=== PATIENT | female | born 1960 | race African-American/Black ===

== ENCOUNTER → 2019-11-19 | Outpatient (CLI) | payer OTHER ==
--- NOTE | 2019-11-19 13:50 | RAD ---
LUMBAR SPINE WO CONTRAST Date: 11/19/2019 3:30 PM Indication: Low back pain and lower extremity weakness Comparison: None. Technique: Multi-planar multi-weighted magnetic resonance imaging of the lumbar spine was performed without intravenous contrast using the standard lumbar spine protocol. FINDINGS: The lumbar spine is normally aligned. No acute fracture. Mild multilevel degenerative disc desiccation and disc height loss. Mild fatty degenerative endplate changes at L5-S1. The conus terminates at a normal level. No abnormal signal is seen within the visualized distal spinal cord. No clumping of intrathecal nerve roots. No soft tissue abnormality in the visualized abdomen or pelvis. T12-L1: No disc bulge. No facet arthropathy. No significant spinal stenosis or neural foraminal narrowing. L1-L2: No disc bulge. No facet arthropathy. No significant spinal stenosis or neural foraminal narrowing. L2-L3: No disc bulge. No facet arthropathy. No significant spinal stenosis or neural foraminal narrowing. L3-L4: Disc bulge. No facet arthropathy. No significant spinal stenosis. Mild left neural foraminal narrowing. L4-L5: Disc bulge. No facet arthropathy. No significant spinal stenosis. Mild bilateral neural foraminal narrowing. L5-S1: Disc bulge. Mild facet arthropathy. No significant spinal stenosis or neural foraminal narrowing. IMPRESSION: Mild lumbar spondylosis, detailed level by level above. Electronically signed by: Michael Archer MD (11/19/2019 1:47 PM) [id number]
== END | disposition home or self-care (01) ==
LOC: MRI 12:17
PROVIDERS: ATTEND Orthopaedic Surgery
DX: M47.816 Spondylosis without myelopathy or radiculopathy, lumbar region (principal); M53.87 Other specified dorsopathies, lumbosacral region
CPT/HCPCS: 72148

== ENCOUNTER → 2020-05-04 | Outpatient (CLI) | payer OTHER ==
[~2020-05-04] MED LIST: ACET-1871 PO; HYDR-2761 PO; IOHEXOL 180 MG/ML 10 ML VIAL. ONE; MULT1CAP15 PO; TRIA1CAP3 PO; methylPREDNISolone ACETATE 40 MG/ML VIAL. ONE; methylPREDNISolone ACETATE 80 MG/ML VIAL. ONE
--- NOTE | 2020-05-04 12:59 | PDOC1 ---
INITIAL PAIN CONSULT DATE OF SERVICE: DOS: DATE: 05/04/20 TIME: 12:52 CHIEF COMPLAINT: Chief Complaint: Low back and bilateral lower extremity pain HISTORY OF PRESENT ILLNESS: 59-year-old female presents history of pain low back for about 2 years now worse over the past 6 months pain in the low back bilateral lower extremities worse on the right than the left rating the posterior gluteus posterior thigh posterior lateral thigh lateral anterior thigh anterior medial thigh again worse on the right side than the left into the medial upper leg on the right side. 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 Patient cries pain is constant sharp stabbing in the low back radiating shooting into the lower extremities again worse on the right than the left. Patient has had physical therapy in the past nothing recently but is doing some stretching strength exercises and stays very active at work. Also had epidural injections in the lumbar spine many years ago which were helpful as well. Patient is been taking hydrocodone as well as ibuprofen which both does decrease the pain to a moderate extent. Patient rates her disability rating 0-10 10 being the worst is a 5 family responsibilities recreation social activity 0 self-care activities. Patient reports no loss of m otor function but significant fatigability of the lower extremities specially on the right when she is on her feet walking standing better with sitting or laying down but is waking her from sleep occasionally not every night patient reports is not effective bowel bladder control does affect her ability to walk and with working and bending especially not use any assistive devices to ambulate however. Patient did have a MRI scan lumbar spine showing disc bulges L3-4 L4-5 and L5-S1 with only mild left neuroforaminal narrowing at L3-4 and mild bilateral neural foramen at L4-5. Patient reports no loss of motor function but significant fatigability especially the right leg with activity especially standing and walking and bending. PAST MEDICAL HISTORY: PMH: Hypertension arthritis obesity PREVIOUS SURGERIES: Past Surgical Hx: Hysterectomy 1999, tubal ligation 1986, breast lumpectomy 2014 CURRENT MEDICATIONS: Current Meds: Active Scripts Medications Dose Route/Sig Max Daily Dose Days Date Category Hydrocodone-Apap 5-325 (Hydrocodone Bit/Acetaminophen) 1 Tab Tablet Unknown Dose PO PRN Q6HRS PRN 05/04/20 Reported Triamterene-Hctz 37.5-25 Mg Cp (Triamterene/Hydrochlorothiazid) 1 Each Capsule 1 Cap PO DAILY 05/04/20 Reported Acetaminophen Ext.release (Acetaminophen) 650 Mg Tablet.er 650 Mg PO PRN Q8HRS PRN 05/04/20 Reported Multivitamins (Multivitamin) 1 Each Capsule 1 Cap PO DAILY 30 05/04/20 Reported FAMILY HISTORY: Family Hx: Cancer, hypertension, hypercholesterolemia, diabetes SOCIAL HISTORY: Social Hx: Patient does not drink alcohol does not smoke does not use any illegal illicit recreational drugs is single lives locally in [facility] and 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 Extraocular movements are intact and symmetrical. Oral cavity: Mucous membranes moist and pink. Dentition is intact. NECK: Shows anterior throat supple without palpable lymphadenopathy noted. Swallow reflex symmetrical. CHEST: Shows normal on inspection. Breath sounds are clear bilaterally, no rales rhonchi wheezes auscultated. HEART: Shows S1, S2 clear. No murmurs auscultated. ABDOMEN: Soft, nontender, nondistended, obese. No palpable organomegaly is noted. No rebound or guarding demonstrated. BACK: Shows spine grossly in the midline. Normal-appearing cervical lordotic c urvature. There is slightly increased thoracic kyphosis, some minor flattening of the lumbar lordotic curvature. Lumbar paraspinous muscles show symmetrical on inspection, on palpation shows some moderate tenderness diffusely throughout the upper, middle and lower distribution of the paraspinous muscles bilaterally and also into the lower thoracic paraspinous musculature, firm and tender, but without specific trigger points, without radiation of pain. The patient has good rotational motion of the lumbar spine, both laterally as well as extension and flexion without significant difficulty. No tenderness over the spinous processes, sacrum or sacroiliac regions. EXTREMITIES: Lower extremities show deep tendon reflexes 2+ in the patellar and tendo calcaneus tendons. Motor exam is 4 on a scale of 5 with right dorsiflexion, extension, quadriceps and hamstring flexion and 4/5 on the left. Peripheral pulses are 1+ posterior tibial. No peripheral edema is noted bilaterally. Lower extremities are warm and dry to touch, equal in color and appearance. Straight leg raise noted to be negative bilaterally. Gaenslen's and Terry's maneuvers are negative as well. The patient is able to stand, stand on her toes without significant difficulty or loss of balance walks with a normal-appearing gait for short distance in the office today without favoring the right or left lower extremity significantly not use any assistive devices to ambulate. SKIN: Shows warm and dry, good turgor. No edema. No sores, rashes or bruising throughout. IMPRESSION: Impression: 59-year-old female with approximate 2-year history low back bilateral lower extremity pain right greater than left and radicular fashion MRI scan lumbar spine as noted Hypertension Arthritis Obesity Plan: Options were discussed with the patient including conservative medical management physical therapies interventional techniques utilized prevention techniques we discussed a lumbar epidural steroid injection using descriptions as well as anatomical models to describe the procedure. Risks were discussed including but not limited to: Bleeding, infection, possibility of epidural hematoma and subsequent neurological compromise, dural puncture, headaches, spinal cord and/or nerve damage, side effects of steroid medication, and poor results regarding pain control. Patient understands wished to proceed. Patient will return to clinic in approximate 2 weeks for follow-up was counseled as to return appointment activity level and side effects to be aware of. Procedure is lumbar epidural steroid injection under local anesthetic using sterile prep and drape at the L4-5 level using C-arm fluoroscopic guidance in both AP and lateral views medications injected is 120 mg Depo-Medrol + 10 mL preservative-free normal saline and 2 mL contrast- condition at discharge is stable patient tolerated procedure well had no complications. BLACK SHERIFF MD May 04, 2020 12:59
== END ==
LOC: PNCL 10:42
PROVIDERS: ATTEND Anesthesiology
DX: M54.5 Low back pain (principal); M79.605 Pain in left leg; M79.604 Pain in right leg; I10 Essential (primary) hypertension; M19.90 Unspecified osteoarthritis, unspecified site; Z98.51 Tubal ligation status; Z98.890 Other specified postprocedural states; Z83.3 Family history of diabetes mellitus; Z82.49 Family history of ischemic heart disease and other diseases of the circulatory system; Z79.899 Other long term (current) drug therapy
CPT/HCPCS: 62323; J1030; J1040; Q9965